=== PATIENT | female | born 2000 | race African-American/Black ===

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

== ENCOUNTER 2021-03-31 02:20 | Emergency (ER) | payer OTHER ==
[~2021-03-31] VITALS: Ht 165.1 cm; Wt 53.0 kg
[~2021-03-31 02:20] MED LIST changes: +RANI-376 PO; -RANI150T21 PO; +VENTOLIN HFA18 GM INH
[2021-03-31 02:56] LABS: BASO # 0.1 x10^3/uL (0.0-0.2); BASO % 1 % (0-3); EOS # 0.1 x10^3/uL (0.0-0.7); EOS % 1 % (0-3); HEMATOCRIT 36.9 % (36.0-47.0); HEMOGLOBIN 12.1 g/dL (12.0-15.5); LYMPH # 2.8 x10^3/uL (1.0-4.8); LYMPH % 37 % (24-48); MEAN CORPUSCULAR HEMOGLOBIN 26 pg (25-35); MEAN CORPUSCULAR HGB CONC 33 g/dL (31-37); MEAN CORPUSCULAR VOLUME 78 fL (79-100); MONO # 0.8 x10^3/uL (0.0-1.1); MONO % 10 % (0-9); NEUT # 3.8 x10^3/uL (1.8-7.7); NEUT % 51 % (31-73); PLATELET COUNT 297 x10^3/uL (140-400); RED BLOOD COUNT 4.73 x10^6/uL (3.50-5.40); RED CELL DISTRIBUTION WIDTH 17.2 % (11.5-14.5); WHITE BLOOD COUNT 7.5 x10^3/uL (4.0-11.0)
[2021-03-31 02:56] LABS: BILIRUBIN,URINE NEGATIVE (NEG); CLARITY,URINE CLEAR; COLOR,URINE YELLOW; NITRITE,URINE NEGATIVE (NEG); PROTEIN,URINE NEGATIVE (NEG-TRACE); UROBILINOGEN,URINE 0.2 mg/dL (0.2 mg/dL)
[2021-03-31 03:01] LABS: CALCIUM 8.6 mg/dL (8.5-10.1); CREATININE 0.8 mg/dL (0.6-1.0); GFR 111.8; POTASSIUM 3.9 mmol/L (3.5-5.1)
--- NOTE | 2021-03-31 03:04 | PHYS DOC ---
Past Medical History Past Medical History: Asthma Past Surgical History: No Surgical History Smoking Status: Never Smoker Alcohol Use: None Drug Use: None General Adult EDM: Chief Complaint: ABDOMINAL PAIN HPI: HPI: Patient is a 20 year old female presents with the chief complaint of pelvic pain and vaginal bleeding. Patient has had Implanon in place since August. Vaginal bleeding onset 18th progressively worse associated with pelvic discomfort. Patient states she has not had bleeding since implanon placed and prior due to depo shots. Review of Systems: Review of Systems: Constitutional: Denies fever or chills. [] Eyes: Denies change in visual acuity. [] HENT: Denies nasal congestion or sore throat. [] Respiratory: Denies cough or shortness of breath. [] Cardiovascular: Denies chest pain or edema. [] GI: Denies abdominal pain, nausea, vomiting, bloody stools or diarrhea. [] : Denies dysuria. [] Musculoskeletal: Denies back pain or joint pain. [] Integument: Denies rash. [] Neurologic: Denies headache, focal weakness or sensory changes. [] Endocrine: Denies polyuria or polydipsia. [] Lymphatic: Denies swollen glands. [] Psychiatric: Denies depression or anxiety. [] Heart Score: C/O Chest Pain: N/A Risk Factors: Risk Factors: DM, Current or recent (<one month) smoker, HTN, HLP, family history of CAD, obesity. Risk Scores: Score 0 - 3: 2.5% MACE over next 6 weeks - Discharge Home Score 4 - 6: 20.3% MACE over next 6 weeks - Admit for Clinical Observation Score 7 - 10: 72.7% MACE over next 6 weeks - Early Invasive Strategies Current Medications: Current Medications Medications (Trade) Dose Ordered Sig/Pastora Start Time Stop Time Status Last Admin Dose Admin Ketorolac Tromethamine (Toradol 30mg Vial) 30 mg 1X ONCE 03/31/21 03:00 03/31/21 03:01 UNV Allergies: Allergies: Allergies Coded Allergies Type Severity Reaction Last Updated Verified peanut Allergy Severe Anaphylaxis 03/31/21 Yes Physical Exam: PE: Constitutional: Well developed, well nourished, no acute distress, non-toxic appearance. [] HENT: Normocephalic, atraumatic, bilateral external ears normal, oropharynx moist, no oral exudates, nose normal. [] Eyes: PERRLA, EOMI, conjunctiva normal, no discharge. [] Neck: Normal range of motion, no tenderness, supple, no stridor. [] Cardiovascular:Heart rate regular rhythm, no murmur [] Lungs & Thorax: Bilateral breath sounds clear to auscultation [] Abdomen: Bowel sounds normal, soft, no tenderness, no masses, no pulsatile masses. [] Skin: Warm, dry, no erythema, no rash. [] Back: No tenderness, no CVA tenderness. [] Extremities: No tenderness, no cyanosis, no clubbing, ROM intact, no edema. [] Neurologic: Alert and oriented X 3, normal motor function, normal sensory function, no focal deficits noted. [] Psychologic: Affect normal, judgement normal, mood normal. [] Current Patient Data: Labs: Laboratory Tests Test 03/31/21 02:47 POC Urine HCG, Qualitative Hcg negative (Negative) Vital Signs: Vital Signs Date Time Temp Pulse Resp B/P (MAP) Pulse Ox O2 Delivery O2 Flow Rate FiO2 03/31/21 02:26 98.2 106 18 118/82 (94) 100 Room Air 98.2 EKG: EKG: [] Radiology/Procedures: Radiology/Procedures: [] Course & Med Decision Making: Course & Med Decision Making Pertinent Labs and Imaging studies reviewed. (See chart for details) [] Dragon Disclaimer: Dragon Disclaimer: This electronic medical record was generated, in whole or in part, using a voice recognition dictation system. Departure Departure Impression: Primary Impression: Pelvic pain Additional Impressions: Vaginal bleeding Menorrhagia Disposition: HOME / SELF CARE / HOMELESS Condition: STABLE Referrals: STEVE SCHAFFER MD (PCP) Patient Instructions: Menorrhagia, Pelvic Pain, Female ZAK CHANG I Mar 31, 2021 03:04
[2021-03-31 03:07] LABS: ALBUMIN 3.6 g/dL (3.4-5.0); ALBUMIN/GLOBULIN RATIO 0.9 (1.0-1.7); TOTAL BILIRUBIN 0.5 mg/dL (0.2-1.0); TOTAL PROTEIN 7.6 g/dL (6.4-8.2)
[2021-03-31] MEDS: KETOROLAC 30 MG/ML VIAL. IVP ONE (03:11)
[2021-03-31 03:34] LABS: BACTERIA,URINE 0 /HPF (0-FEW); RBC,URINE OCC /HPF (0-2); WBC,URINE 0 /HPF (0-4)
--- NOTE | 2021-03-31 04:26 | RAD ---
EXAM: Pelvic ultrasound HISTORY: Pelvic pain and vaginal bleeding. COMPARISON: None. FINDINGS: Sonographic evaluation of the pelvis was performed transabdominally and transvaginally. The uterus is anteverted and measures 7.5 x 4.8 x 3.8 cm. The endometrial stripe measures 9 mm. No ma sses are identified. A small amount of free fluid is likely physiologic. The right ovary measures 3.2 x 3.0 x 2.7 cm. A dominant follicle on the right measures 1.9 cm. The le ft ovary measures 2.7 x 2.5 x 1.5 cm. There is normal Doppler flow bilaterally. There are no suspicio us lesions. IMPRESSION: 1. Normal endometrial thickness in a premenopausal patient. No clear abnormality is identified. Electronically signed by: Georgia Barros MD (03/31/2021 4:23 AM) [facility]
[2021-03-31 04:46] VITALS: BP 101/69
== END 2021-03-31 05:00 | disposition home or self-care (01) ==
LOC: ER 02:20
DX: N92.0 Excessive and frequent menstruation with regular cycle (principal); R10.2 Pelvic and perineal pain; J45.909 Unspecified asthma, uncomplicated; Z91.010 Allergy to peanuts
CPT/HCPCS: 36415; 76830; 76856; 80053; 81001; 81025; 85025; 96374; 99284; J1885; 99285-25